=== PATIENT | male | born 1955 | race Caucasian/White ===

== ENCOUNTER 2017-03-31 09:48 | Inpatient (IN) | payer OTHER ==
[2017-03-13 12:26] VITALS: BMI 40.0
--- NOTE | 2017-03-13 12:50 | PAT Medication Instructions ---
Service Date Mar 13, 2017. Current Home Medication List Albuterol (Proair Hfa), 2 PUFFS Q4 PRN for UNKN Budesonide/Formoterol Fumarate (Symbicort 160/4.5 Inhaler ), 2 PUFFS INH BID Lisinopril (Prinivil), 10 MG PO QAM Melatonin (Melatonin Maximum Strengt), 10 MG PO HS Multiple Vitamin (Multivitamin), 1 TAB PO QAM PRN for PRN Oxycodone Ir (Roxicodone Ir), 5 MG PO QID PRN for RN Tramadol (Ultram), 50 MG PO TID PRN for RN Trazodone Hcl (Trazodone), 100 MG PO HS Medication Instructions For Your Scheduled Surgery - Hold the following medications the morning of surgery: Lisinopril (Prinivil), 10 MG PO QAM Multiple Vitamin (Multivitamin), 1 TAB PO QAM PRN - Take the following medications the morning of surgery with a sip of water OTHERWISE NOTHING TO EAT OR DRINK AFTER MIDNIGHT: Albuterol (Proair Hfa), 2 PUFFS Q4 PRN (use if needed; BRING TO HOSPITAL) Budesonide/Formoterol Fumarate (Symbicort 160/4.5 Inhaler ), 2 PUFFS INH BID Tramadol (Ultram), 50 MG PO TID PRN (may take up to 4 hours prior to surgery if needed) Oxycodone Ir (Roxicodone Ir), 5 MG PO QID PRN (may take up to 4 hours prior to surgery if needed) - Take the following medications as scheduled the night before surgery: Albuterol (Proair Hfa), 2 PUFFS Q4 PRN Budesonide/Formoterol Fumarate (Symbicort 160/4.5 Inhaler ), 2 PUFFS INH BID Melatonin (Melatonin Maximum Strengt), 10 MG PO HS Trazodone Hcl (Trazodone), 100 MG PO HS Tramadol (Ultram), 50 MG PO TID PRN Oxycodone Ir (Roxicodone Ir), 5 MG PO QID PRN If you have any questions please call us at [phone] or [phone] or [phone]
[2017-03-13 13:35] LABS: BASO % 0.3 %; BASO ABS # 0.02 K/uL (0-0.2); COMPLETE YES; EOS % 5.5 %; HEMATOCRIT 48.8 % (42-52); IG% 0.3 %; LYMPH % 28.8 %; LYMPH ABS # 1.95 K/uL (1.2-3.4); MEAN CELL VOLUME 104.7 fL (80-100); MEAN CORPUSCULAR HEMOGLOBIN 35.4 pg (25-34); MEAN CORPUSCULAR HGB CONC 33.8 g/dl (32-36); MEAN PLATELET VOLUME 10.6 fL (7.4-10.4); MONO % 7.8 %; NEUT % 57.3 %; PLATELET COUNT 186 K/uL (130-400); RED BLOOD COUNT 4.66 M/uL (4.7-6.1); WHITE BLOOD COUNT 6.78 K/uL (4.8-10.8)
[2017-03-13 13:39] LABS: URINE APPEARANCE CLEAR (CLEAR); URINE BILIRUBIN NEG (NEG); URINE COLOR DK YELLOW; URINE NITRITE NEG (NEG); URINE SPECIFIC GRAVITY 1.023 (1.000-1.030); UROBILINOGEN NEG (NEG); ZZUR CULT IF INDIC CLEAN CATCH NO
[2017-03-13 13:50] LABS: MANUAL MICROSCOPIC REQUIRED? NO; REVIEW REQ? NO
[2017-03-13 13:55] LABS: PROTHROMBIN TIME (PATIENT) 10.8 SECONDS (9.0-12.0)
[2017-03-13 14:49] LABS: BUN/CREATININE RATIO 8.9 (10-20); CREATININE 1.1 mg/dl (0.60-1.40); POTASSIUM 3.8 mmol/L (3.5-5.1)
--- NOTE | 2017-03-27 16:22 | HISTORY & PHYSICAL EXAMINATION ---
DATE OF ADMISSION: 03/31/2017 CHIEF COMPLAINT: Left hip pain. HISTORY OF PRESENT ILLNESS: Mr. Nevarez is a 61-year-old male with a multiple year history of left hip pain. The patient has pain with his daily activities. He has limited standing and walking tolerance. Pain is worse with weightbearing. The patient has had injections, home exercise program and tramadol without relief. He has failed conservative treatment and is scheduled for left hip replacement. PAST MEDICAL HISTORY: Hypertension, COPD, sleep apnea and osteoarthritis and obesity. He denies heart disease, diabetes or DVT. PAST SURGICAL HISTORY: Bilateral knee replacement, right total hip replacement, cervical fusion and cholecystectomy. SOCIAL HISTORY: The patient drinks 6 drinks per week. He smokes less than 1 pack a day x30 years. He lives in a single [place]drigue[place] home. He is and retired. FAMILY HISTORY: Negative for DVT. MEDICATIONS: Lisinopril 10 mg daily, trazodone 50 mg daily, tramadol 3 times daily, melatonin 5 mg, Symbicort 160, oxycodone 5 mg, ProAir HFA 90 mcg, and Percocet 5/325 p.r.n. ALLERGIES: PENICILLIN. REVIEW OF SYSTEMS: See HPI. Ten other systems reviewed, all negative. PHYSICAL EXAMINATION: VITAL SIGNS: Height 6 foot 0 inches, weight 297 pounds, BMI is 39. GENERAL: This is a well-developed, well-nourished male who is alert and oriented x3. Mood and affect are appropriate. HEENT: Normocephalic, atraumatic. Mucous membranes are moist and intact. NECK: Supple without lymphadenopathy. HEART: Regular rate and rhythm without murmurs, rubs or gallops. LUNGS: Clear to auscultation without wheezes or rhonchi. ABDOMEN: Soft and nontender. Bowel sounds are equal and active. EXTREMITIES: No ecchymosis, redness or warmth. Thigh and calf are soft and nontender. Log roll of the hip reproduces pain in the groin. Range of motion is decreased. He is neurovascularly intact with +5/5 strength. X-RAY EXAMINATION: AP and lateral views show joint space narrowing and osteophyte formation. IMPRESSION: Degenerative joint disease, left hip. PLAN: The patient will be admitted for a left total hip arthroplasty, direct anterior approach. We will plan on aspirin for DVT prophylaxis. The patient will have [facility] for home physical therapy.
[2017-03-31] VITALS (7 sets, daily range): BP systolic 118–166; BP diastolic 73–96; PULSE 85–97; TEMP 36.4–36.8; O2SAT 91–98; Ht 182.9 cm; Wt 135.4 kg
[~2017-03-31] VITALS: Ht 182.9 cm; Wt 135.4 kg
[2017-03-31] MEDS: TRANEXAMIC ACID INJ 1,000 MG in SODIUM CHLORIDE 0.9% 100ML 100 ML IV SCH ×2 (06:30→11:17)
[~2017-03-31 09:48] MED LIST: ACETAMINOPHEN 500 MG TAB PO SCH; ALBU1AER9; BUPIVACAINE 0.5 % 5 MG/1 ML PF 10ML VIAL ONE; CEFAZOLIN 3000 MG/65 ML D5W 65 ML IV SCH; CeleBREX 200 MG CAP PO SCH; DEXAMETHASONE 4 MG TAB PO SCH; FAMOTIDINE 20 MG TAB PO SCH; GABAPENTIN 300 MG CAP PO SCH; LACTATED RINGER'S 1000ML 1,000 ML IV SCH; LACTATED RINGER'S 1000ML 500 ML IV ONE; LACTATED RINGER'S 1000ML IV SCH; LISI10TA PO; MELATAB2 PO; METOCLOPRAMIDE HCL 10 MG TAB PO SCH; MULTTAB58 PO; OXYC1TAB3 PO; OXYCODONE HCL 10 MG TABCR (OXYCONTIN) PO SCH; POLYMYXIN B SULFATE 100,000 UNITS in NSS 100ML IR SCH; ROPIVACAINE 5MG/ML 30 ML 150 MG, BUPIVACAINE/EPINEPHR 0.5% MPF 30 ML, KETOROLAC TROMETH... INFIL SCH; SYMIN160 INH; TRAM-10 PO; TRAZ100T29 PO; VANCOMYCIN INJ 400 MG in NSS 100ML IR SCH
[2017-03-31] MEDS ORDERED: MIDAZOLAM HCL 1 MG/ML 2ML VIAL ONE (10:27)
[2017-03-31] MEDS ORDERED: FENTANYL CITRATE INJ 50 MCG/1 ML 2 ML VIAL ONE (10:27)
[2017-03-31] MEDS ORDERED: ONDANSETRON INJ 2 MG/ML 2 ML VIAL ONE (10:27)
[2017-03-31] MEDS ORDERED: PROPOFOL IV EMULSION 10 MG/ML 20 ML VIAL IV ONE ×2 (10:27→13:38)
[2017-03-31] MEDS ORDERED: LIDOCAINE HCL 2% 2 ML VIAL (20MG/ML) ONE (10:27)
--- NOTE | 2017-03-31 10:53 | History & Physical Bridge Note ---
H&P Re-Evaluation Bridge Note: I have examined the patient, reviewed the History & Physical and in the interval since the performance of the History & Physical I have noted the following changes of clinical significance: No changes noted
[2017-03-31] MEDS ORDERED: POVIDONE-IODINE OP SOLN 30 ML BTL ONE (11:21)
[2017-03-31] MEDS ORDERED: BACITRACIN 50000 UNIT VIAL ONE (11:21)
[2017-03-31] MEDS ORDERED: ORTHO JOINT ANESTHETIC ONE (11:21)
[2017-03-31] MEDS ORDERED: FENTANYL CITRATE INJ 50 MCG/1 ML 2 ML VIAL IV PRN (12:15)
[2017-03-31] MEDS ORDERED: ONDANSETRON INJ 2 MG/ML 2 ML VIAL IV PRN ×2 (12:15→13:45)
[2017-03-31] MEDS ORDERED: EpHEDrine SULFATE INJ 50 MG/ML AMP IV PRN (12:15)
[2017-03-31] MEDS ORDERED: ATROPINE SULFATE 0.1 MG/ML 5ML SYR IV PRN (12:15)
[2017-03-31] MEDS ORDERED: PHENYLEPHRINE 100MCG/ML 5ML SYR ONE (12:34)
--- NOTE | 2017-03-31 13:39 | [facility] Post Operative Brief Note ---
Immediate Operative Summary Operative Date March 31, 2017. Pre-Operative Diagnosis Left Hip Degenerative Joint Disease Post-Operative Diagnosis Left Hip Degenerative Joint Disease MORBID OBESITY BMI 40 Procedure(s) Performed Left Total Hip Arthroplasty, Direct Anterior Approach-Uncemented Surgeon Dr. Matt Martinez Human Resources Psychologist Surgeon(s) Stacy Arnett PA-C Estimated Blood Loss 250ml Findings DJD Specimens A: Left Femoral Head Complication(s) None Disposition Recovery Room / PACU
--- NOTE | 2017-03-31 13:40 | DIAGNOSTIC IMAGING REPORT ---
Intraoperative left hip single view CLINICAL HISTORY: Left hip arthroplasty COMPARISON STUDY: 10/16/2015 FINDINGS: 15 seconds of fluoroscopic time was utilized. A single intraoperative fluoroscopic spot images provided for interpretation. A total left hip arthroplasty is visualized. The inferior margin of the femoral spike is not included. There is a single acetabular screw. There is no dislocation identified in this single projection IMPRESSION: Total left hip arthroplasty. Electronically signed by: Sourav Meadows M.D. 03/31/2017 1:38 PM Dictated Date/Time: 03/31/2017 1:37 PM
[2017-03-31] MEDS ORDERED: TRAMADOL HCL 50 MG TAB PO PRN (13:45)
[2017-03-31] MEDS ORDERED: BISACODYL 10 MG SUPP PR PRN (13:45)
[2017-03-31] MEDS ORDERED: ALBUTEROL HFA 8 GM INHALER INH PRN (13:45)
[2017-03-31] MEDS ORDERED: SOD PHOSPHATE/SOD BIPHOSPHATE ENEMA 132 ML BTL PR PRN (13:45)
[2017-03-31] MEDS ORDERED: ALUMINUM/MAGNESIUM/SIMETH (MAALOX MAX) 30 ML UDC PO PRN (13:45)
[2017-03-31] MEDS ORDERED: ZOLPIDEM TARTRATE 5 MG TAB PO PRN (13:45)
[2017-03-31] MEDS ORDERED: MAGNESIUM HYDROXIDE SUSP 30 ML UDC PO PRN (13:45)
[2017-03-31] MEDS ORDERED: METOCLOPRAMIDE HCL INJ 5 MG/ML 2 ML VIAL IV PRN (13:45)
[2017-03-31] MEDS ORDERED: DiphenhydrAMINE HCL 50 MG/ML VIAL IV PRN (13:45)
--- NOTE | 2017-03-31 15:01 | DIAGNOSTIC IMAGING REPORT ---
AP PELVIS AND LEFT HIP 3 VIEWS CLINICAL HISTORY: Left hip arthroplasty COMPARISON STUDY: 10/16/2015 FINDINGS: Again evident is a total right hip arthroplasty. Since the prior study, the patient at undergone a total left hip arthroplasty. There is an overlying surgical drain. There is no dislocation. No acute fractures are visualized. IMPRESSION: Interval total left hip arthroplasty Electronically signed by: Sourav Meadows M.D. 03/31/2017 3:00 PM Dictated Date/Time: 03/31/2017 2:59 PM
--- NOTE | 2017-03-31 15:06 | Anesthesiology Progress Note ---
Anesthesia Post Op Note Date & Time March 31, 2017 at 15:05 Vital Signs Pain Intensity: 0 Vital Signs Past 12 Hours Date Time Temp Pulse Resp B/P Pulse Ox O2 Delivery O2 Flow Rate FiO2 03/31/17 15:00 83 17 123/72 98 Nasal Cannula 2 03/31/17 14:50 36.5 87 20 132/75 97 Nasal Cannula 2 03/31/17 14:40 83 22 120/72 99 Nasal Cannula 2 03/31/17 14:30 81 18 130/85 98 Nasal Cannula 2 03/31/17 14:20 78 17 132/67 98 Nasal Cannula 2 03/31/17 14:10 84 17 114/69 96 Nasal Cannula 2 03/31/17 14:04 36.6 81 20 129/72 97 Nasal Cannula 2 03/31/17 10:26 36.8 92 20 166/96 96 Room Air Notes Mental Status: alert / awake / arousable, participated in evaluation Pt Amnestic to Procedure: Yes Nausea / Vomiting: adequately controlled Pain: adequately controlled Airway Patency, RR, SpO2: stable & adequate BP & HR: stable & adequate Hydration State: stable & adequate Neuraxial Anesthesia: was administered, sensory block is resolving Anesthetic Complications: no major complications apparent
[2017-03-31] MEDS: OXYCODONE HCL IR 5 MG TAB (IMMEDIATE RELEASE) PO PRN ×2 (15:53→20:20)
[2017-03-31] MEDS: D5W AND 1/2NSS + 20MEQ KCL 1,000 ML IV SCH (15:54)
--- NOTE | 2017-03-31 17:16 | OPERATIVE REPORT ---
DATE OF OPERATION: 03/31/2017 PREOPERATIVE DIAGNOSES: 1. Degenerative arthritis, left hip. 2. Morbid obesity, BMI of 40. POSTOPERATIVE DIAGNOSES: Same. PROCEDURE: Left total hip replacement. SURGEON: Matt Martinez MD SPECIAL EDUCATION TEACHER: WESLY [place] ANESTHESIA: Spinal. BLOOD LOSS: 250 mL. REPLACEMENT FLUIDS: 1900 mL crystalloid. DRAINS: Hemovac x2. CULTURES: None. COMPLICATIONS: None. COMPONENTS USED: Daily and Nephew Polar hip system: Acetabulum size 56, femur size 5 standard offset, femoral head +8 36 mm. NOTE: Stacy Arnett was present and assisted throughout due to the complicated nature of this case. She helped with preparation and set up, first assisted throughout and personally closed the fascial, subcutaneous and skin layers and applied the postoperative dressing. DESCRIPTION: Following satisfactory spinal, the patient was supine. The left leg was placed in the traction device, the right leg in the well leg [place]aca. The left leg was prepared with ChloraPrep and draped sterilely. Following a surgical time-out, an anterior approach was performed in the interval between the sartorius and tensor muscles. The approach was difficult. The patient had an extremely large body habitus size. Eventually, the circumflex femoral vessels were identified and ligated. An anterior capsulotomy was performed exposing the hip. The femoral neck and head were trimmed and removed. The acetabular self-retraining retractor was placed. It was difficult to keep in position because of his size. Acetabular preparation was completed and under fluoroscopic guidance, the acetabulum was reamed to a 56. The 56 shell was impacted and secured using a dome screw with fluoroscopy confirming the position. A large inferior osteophyte was removed and after local anesthetic and irrigation, the poly liner placed. The femur was placed in position of external rotation, extension and adduction. Femoral canal was up to the size 5. Intraoperative fluoroscopy showed good fit and fill of the proximal canal and the +8 showed the restorationism of leg lengths. It should be noted that this was what was templated preoperatively. The hip was dislocated, trial component removed, the final implant of same size, placed and the hip was reduced with fluoroscopy confirming the position. A Betadine soak was performed. The muscles were infiltrated with local anesthetic. After irrigation, after 3 minutes with Betadine, the capsule was closed with 1-0 Vicryl interrupted. A drain was placed. The fascia was closed with 1-0 Vicryl running, the subcutaneous tissues with 1 and 2-0 Vicryl and the skin with a running subcuticular stitch of 3-0 V-Loc. Dermabond and a dry dressing were applied. The patient was returned to his bed in stable condition. I attest to the content of the Intraoperative Record and any orders documented therein. Any exceptio ns are noted below.
[2017-03-31] MEDS: KETOROLAC TROMETHAMINE 30 MG/ML VIAL IV. SCH ×2 (17:38→23:39)
[2017-03-31] MEDS: MoRPHine SULFATE 4 MG/ML 1 ML CARP\\VIAL IV PRN ×2 (17:44→22:02)
[2017-03-31] MEDS ORDERED: TRANEXAMIC ACID INJ 1,000 MG in SODIUM CHLORIDE 0.9% 100ML 100 ML IV ONE (20:00)
[2017-03-31] MEDS: ASPIRIN 81 MG ECTAB PO SCH (20:22)
[2017-03-31] MEDS: BUDESONIDE/FORMOTEROL FUMARATE 160/4.5 60 PUFFS/INHALER INH SCH (20:22)
[2017-03-31] MEDS ORDERED: SENNA 8.6 MG TAB PO SCH (21:00)
[2017-03-31] MEDS ORDERED: NON-FORMULARY MEDICATION (Melatonin (Melatonin Maximum Strengt) 10 MG) PO SCH (21:00)
[2017-03-31] MEDS ORDERED: TRAZODONE HCL 100 MG TAB PO SCH (21:00)
[2017-03-31] MEDS: CLINDAMYCIN IV 600 MG in DEXTROSE 5% ADD-VANTAGE 50ML 50 ML IV SCH (22:02)
[2017-03-31] MEDS: ACETAMINOPHEN 500 MG TAB PO SCH (22:05)
[2017-04-01] MEDS: D5W AND 1/2NSS + 20MEQ KCL 1,000 ML IV SCH ×2 (02:29→11:49)
[2017-04-01 03:07] VITALS: BP 133/82; PULSE 81; TEMP 36.6; O2SAT 92
[2017-04-01] MEDS: CLINDAMYCIN IV 600 MG in DEXTROSE 5% ADD-VANTAGE 50ML 50 ML IV SCH (04:15)
[2017-04-01] MEDS: OXYCODONE HCL IR 5 MG TAB (IMMEDIATE RELEASE) PO PRN ×3 (04:16→14:31)
[2017-04-01] MEDS: KETOROLAC TROMETHAMINE 30 MG/ML VIAL IV. SCH ×2 (06:01→11:49)
[2017-04-01] MEDS: ACETAMINOPHEN 500 MG TAB PO SCH ×2 (06:02→14:32)
[2017-04-01 06:24] LABS: BASO ABS # 0.01 K/uL (0-0.2); COMPLETE YES; HEMATOCRIT 44.6 % (42-52); IG% 0.3 %; LYMPH % 5.5 %; LYMPH ABS # 1.15 K/uL (1.2-3.4); MEAN CELL VOLUME 105.9 fL (80-100); MEAN CORPUSCULAR HEMOGLOBIN 34.4 pg (25-34); MEAN CORPUSCULAR HGB CONC 32.5 g/dl (32-36); MEAN PLATELET VOLUME 10.4 fL (7.4-10.4); MONO % 7.1 %; NEUT % 87.1 %; PLATELET COUNT 173 K/uL (130-400); RED BLOOD COUNT 4.21 M/uL (4.7-6.1); WHITE BLOOD COUNT 20.73 K/uL (4.8-10.8)
[2017-04-01 07:00] LABS: CALCIUM 8.9 mg/dl (8.5-10.1); CREATININE 1.1 mg/dl (0.60-1.40); POTASSIUM 4.7 mmol/L (3.5-5.1)
--- NOTE | 2017-04-01 07:52 | Orthopedic Progress Note ---
Orthopedic Progress Note Date of Service April 01, 2017. Subjective Post OP Day: 1 (L XAVIER ) Reports: feeling well, pain controlled w PO medications, Denies: SOB, calf pain , chest pain, complaints Objective calves soft nontender, N/V intact, hip located, dressing C/D/I, A&O x3, toes mobile, hemovac drainage (50 LAST SHIFT ) Date Time Temp Pulse Resp B/P Pulse Ox O2 Delivery O2 Flow Rate FiO2 04/01/17 03:07 36.6 81 18 133/82 92 Room Air 03/31/17 22:53 36.7 88 18 118/73 91 Room Air 03/31/17 20:20 Room Air 03/31/17 18:11 36.7 97 16 134/80 95 Nasal Cannula 2.0 03/31/17 17:06 36.4 93 16 133/77 96 Nasal Cannula 2.0 03/31/17 16:11 36.6 89 16 158/89 97 Nasal Cannula 2.0 03/31/17 15:45 36.5 85 16 155/90 98 Nasal Cannula 2.0 03/31/17 15:10 94 Nasal Cannula 2.0 03/31/17 15:10 94 Nasal Cannula 2.0 03/31/17 15:10 36.6 92 16 154/93 94 Nasal Cannula 2.0 03/31/17 15:00 83 17 123/72 98 Nasal Cannula 2 03/31/17 14:50 36.5 87 20 132/75 97 Nasal Cannula 2 03/31/17 14:40 83 22 120/72 99 Nasal Cannula 2 03/31/17 14:30 81 18 130/85 98 Nasal Cannula 2 03/31/17 14:20 78 17 132/67 98 Nasal Cannula 2 03/31/17 14:10 84 17 114/69 96 Nasal Cannula 2 03/31/17 14:04 36.6 81 20 129/72 97 Nasal Cannula 2 03/31/17 10:26 36.8 92 20 166/96 96 Room Air Laboratory Results 24 Hours: Test 04/01/17 05:57 White Blood Count 20.73 K/uL Red Blood Count 4.21 M/uL Hemoglobin 14.5 g/dL Hematocrit 44.6 % Mean Corpuscular Volume 105.9 fL Mean Corpuscular Hemoglobin 34.4 pg Mean Corpuscular Hemoglobin Concent 32.5 g/dl Platelet Count 173 K/uL Mean Platelet Volume 10.4 fL Neutrophils (%) (Auto) 87.1 % Lymphocytes (%) (Auto) 5.5 % Monocytes (%) (Auto) 7.1 % Eosinophils (%) (Auto) 0.0 % Basophils (%) (Auto) 0.0 % Neutrophils # (Auto) 18.03 K/uL Lymphocytes # (Auto) 1.15 K/uL Monocytes # (Auto) 1.47 K/uL Eosinophils # (Auto) 0.00 K/uL Basophils # (Auto) 0.01 K/uL Assessment & Plan Assessment: POD 1 XAVIER MORBID OBESITY Plan: HOME TODAY W [facility] DRESSWINGS AND DRAIN OFF Inhouse Planning Pain Management: Celebrex, PO Tylenol, Oxy IR DVT Prophylaxis: TEDs, SCDs, ASA Discharge Planning Discharge Planning: home with home health Pain Management: Celebrex, PO Tylenol, Oxy IR DVT Prophylaxis: TEDs, ASA
--- NOTE | 2017-04-01 07:58 | Discharge Instructions ---
Discharge Instructions Date of Service April 01, 2017. Admission Reason for Admission: Left Hip Degenerative Arthritis Discharge Discharge Diagnosis / Problem: sp left total hip, direct anterior Discharge Goals Goal(s): Decrease discomfort, Improve function, Increase independence Activity Recommendations Activity Limitations: per Instructions/Follow-up section . Instructions / Follow-Up Instructions / Follow-Up ACTIVITY RECOMMENDATIONS: SELF CARE INSTRUCTIONS AFTER TOTAL HIP REPLACEMENT : Direct Anterior Approach Until the incision and soft tissues around your hip have healed, there is a possibility that the hip prosthesis could dislocate. A. Hip flexion ( Up & Down out of chair or steps ) may be difficult. This is normal. B. Numbness in front of the thigh is also normal for a few weeks. C. Use hand rails when walking on stairs. D. Wear low heeled shoes with non-slip soles. E. Be sure that your floors are free of things that could trip you - throw rugs , electrical cords, small objects. Avoid wet and waxed floors, especially with crutches and canes. F. Try to walk several times a day with rest periods between. G. Continue with all the exercises taught to you in the hospital. Again, make walking a part of your daily routine. SPECIAL CARE INSTRUCTIONS: VERY IMPORTANT TO READ AND REVIEW A. You may still be at risk for phlebitis and blood clots. 1. Wear surgical stockings (GRISELDA hose) for 2 weeks after surgery to improve circulation and reduce swelling. 2. Take Aspirin 81mg twice daily for 4 weeks or as directed by your doctor. This is your blood thinner. 3. High risk patients may be prescribed a stronger blood thinner if necessary. 4. If you are on Coumadin normally, your family doctor/instructor flying should monitor your blood work. Expect a phone call the day of or the day after bloodwork is drawn to adjust your dosage. B. You must take antibiotics before having dental work, bladder, bowel and other surgery. Your doctor will provide you with a permanent card to carry describing precautions. C. Call [facility] if you have a fever, redness or swelling around the incision, cloudy drainage from incision, or sudden increase in pain in your hip, not relieved by your regular pain medication. D. Please call the office at if you have any concerns or questions about your operation or recovery. * YOU MAY SHOWER, NO TUB BATHS UNTIL CLEARED BY YOUR DOCTOR. - Keep an extra close eye on the top portion of your incision. Be sure to keep clean & dry. * WEAR GRISELDA HOSE 20 HOURS PER DAY FOR 2 WEEKS. * YOU MAY PROGRESS FROM A WALKER, TO A CANE, TO INDEPENDENT AT YOUR OWN PACE. * MOST PATIENTS WILL HAVE HOME NURSING FOR THERAPY. IF YOU DECIDE TO DO OUTPATIENT PHYSICAL THERAPY, PLEASE SCHEDULE THIS 3 TIMES PER WEEK. * DERMABOND Prineo- This is a mesh tape dressing that is covered with glue. It should remain in place until the incision is properly healed, usually 10-14 days. This dressing is designed to naturally slough off. You may trim the excess mesh tape as it peels off. Incision may be briefly wet in a shower. Dry immediately by blotting with a clean, dry towel. Do not bath or swim until instructed by your doctor. Do not scratch, rub, or pick at the dressing. Do not apply any topical ointments or lotions until dressing is completely removed and/or instructed by your doctor. There may be a small piece of suture material at one end of your incision. Do not pull or trim this. If it is bothersome or catching on clothing, you may cover it with a band-aid. FOLLOW UP VISIT: If appointment is not already scheduled: Please call [facility] to make a follow-up appointment for 2 weeks after your surgery at . Current Hospital Diet Patient's current hospital diet: Regular Diet Discharge Diet Recommended Diet: Regular Diet Procedures Procedures Performed: Left Total Hip Arthroplasty, Direct Anterior Approach-Uncemented Pending Studies Studies pending at discharge: no Medical Emergencies . Who to Call and When: Medical Emergencies: If at any time you feel your situation is an emergency, please call 911 immediately. . Non-Emergent Contact Non-Emergency issues call your: Surgeon . "Provider Documentation" section prepared by Stacy Arnett. . VTE Core Measure Inpt VTE Proph given/why not?: Other Anticoagulation, T.E.D. Stockings, SCD's [place] Drug Monitoring Program Search Results: patient reviewed within database, no issues identified
[2017-04-01] MEDS ORDERED: ACET-1138 PO (08:00)
[2017-04-01] MEDS ORDERED: SNK PO (08:00)
[2017-04-01] MEDS ORDERED: OXYC1TAB3 PO (08:00)
[2017-04-01] MEDS ORDERED: CLB200 PO (08:00)
[2017-04-01] MEDS ORDERED: ASPEC81 PO (08:00)
[2017-04-01] MEDS ORDERED: ONDA8TAB6 PO (08:00)
[2017-04-01 08:09] VITALS: BP 134/78; PULSE 80; TEMP 36.4; O2SAT 96
[2017-04-01] MEDS ORDERED: PANTOprazole SOD 40 MG TAB PO SCH (09:00)
[2017-04-01] MEDS ORDERED: LISINOPRIL 10 MG TAB PO SCH (09:00)
[2017-04-01] MEDS ORDERED: MULTIVITAMIN TAB PO SCH (09:00)
[2017-04-01 09:10] VITALS: O2SAT 96
[2017-04-01] MEDS: BUDESONIDE/FORMOTEROL FUMARATE 160/4.5 60 PUFFS/INHALER INH SCH (09:19)
[2017-04-01] MEDS: ASPIRIN 81 MG ECTAB PO SCH (09:19)
--- NOTE | 2017-04-01 10:44 | Anesthesiology Progress Note ---
Anesthesia Post Op Note Date & Time April 01, 2017 at 10:44 Vital Signs Pain Intensity: 7.0 Vital Signs Past 12 Hours Date Time Temp Pulse Resp B/P Pulse Ox O2 Delivery O2 Flow Rate FiO2 04/01/17 09:10 96 Room Air 04/01/17 08:09 36.4 80 18 134/78 96 Room Air 04/01/17 07:28 Room Air 04/01/17 03:07 36.6 81 18 133/82 92 Room Air 03/31/17 22:53 36.7 88 18 118/73 91 Room Air Notes Mental Status: alert / awake / arousable, participated in evaluation Pt Amnestic to Procedure: Yes Nausea / Vomiting: adequately controlled Pain: adequately controlled Airway Patency, RR, SpO2: stable & adequate BP & HR: stable & adequate Hydration State: stable & adequate Neuraxial Anesthesia: was administered, sensory block resolved Anesthetic Complications: no major complications apparent
[2017-04-01 11:35] VITALS: BP 134/78; PULSE 80; TEMP 36.4; O2SAT 96
[2017-04-01 11:56] VITALS: BP 140/78; PULSE 78; TEMP 36.5; O2SAT 95
[2017-04-02] MEDS ORDERED: CeleBREX 200 MG CAP PO SCH (21:00)
--- NOTE | 2017-04-07 15:06 | DISCHARGE SUMMARY ---
DISCHARGE DIAGNOSIS: Degenerative joint disease, left hip. SECONDARY DIAGNOSIS: None. CONSULTS: None. COMPLICATIONS: None. PROCEDURE: The patient underwent a left hip resurfacing direct anterior with Dr. Martinez on 03/31/2017. BRIEF HISTORY: Please see previously dictated history and physical. HOSPITAL SUMMARY: The patient was admitted on the above day for the above procedure. Procedure went without complication. Postop day 1, the patient was feeling well without complaints. He denied chest pain or shortness of breath. Vital signs were stable. He was afebrile. Dressing was clean, dry and intact. He was neurovascularly intact. Calves were soft and nontender. Hip was located. Hemovac drained 50 mL. Hemoglobin was 14.5. The patient began physical therapy per protocol. He tolerated this well. He was discharged to home later that day with [facility]. For further review, please see the chart. Lab, x-ray data and discharge instructions as per chart.
== END 2017-04-01 14:35 | disposition home health service (06) | DRG 470 ==
LOC: ENRESERVDT → ENRESERVTM → C.ACU 09:48 → C.3E 10:00
PROVIDERS: ADMIT Orthopaedic Surgery; ATTEND Orthopaedic Surgery
PROC: 0SRB0JA Replacement of Left Hip Joint with Synthetic Substitute, Uncemented, Open Approach (ICD-10-PCS; principal; 2017-03-31 12:00)
DX: M16.12 Unilateral primary osteoarthritis, left hip (principal); Z68.41 Body mass index [BMI] 40.0-44.9, adult; E66.01 Morbid (severe) obesity due to excess calories; I10 Essential (primary) hypertension; J44.9 Chronic obstructive pulmonary disease, unspecified; G47.30 Sleep apnea, unspecified; Z79.899 Other long term (current) drug therapy; Z96.653 Presence of artificial knee joint, bilateral; Z96.641 Presence of right artificial hip joint; F17.200 Nicotine dependence, unspecified, uncomplicated